=== PATIENT | male | born 1970 | race Caucasian/White ===

== ENCOUNTER 2016-08-19 13:48 | Emergency (ER) | payer SELFPAY ==
--- NOTE | 2016-08-19 14:25 | ERNOTE ---
Dizziness ER Record Date of Service: 08/19/16 Presenting Symptoms: dizziness, weakness Time Seen by Provider: 08/19/16 14:06 Source: patient, family Exam Limitations: no limitations Immunizations: IMMUNIZATION HX Immunizations Up to Date Yes Allergies/Adverse Reactions: Allergies Allergy/AdvReac Type Severity Reaction Status Date / Time Sulfa (Sulfonamide Allergy Verified 08/19/16 14:02 Antibiotics) tomato AdvReac Verified 08/19/16 14:02 Home Medications: HOME MEDICATIONS Lisinopril [Prinivil] 20 mg PO DAILY 08/19/16 [Last Taken Unknown] - History of Present Illness Narrative: Pt. comes in with c/o dizziness, lightheadedness, nausea and vomiting, low blood pressure, weakness and fatigue for three days after he goes to work each day starting at about mid shift. Pt. denies any alleviating or aggravating factors pain, or headache, pt. does state that he has held his blood pressure medication the past two days. Pt. denies any CP, SOB, fever, abdominal pain, or diarrhea. Review of Systems - Review of Systems Constitutional: Present: weakness, fatigue, malaise. Absent: recent illness, fever, chills EYE: Present: no symptoms reported ENT: Present: no symptoms reported. Absent: nose pain, nose congestion, nasal drainage Respiratory: Present: no symptoms reported. Absent: shortness of breath, cough , wheezing Cardiology: Present: no symptoms reported. Absent: chest pain, palpitations, edema Gastrointestinal/Abdominal: Present: nausea, vomiting. Absent: diarrhea, abdominal pain Genitourinary: Present: no symptoms reported Musculoskeletal: Present: no symptoms reported. Absent: back pain, joint pain Skin: Present: no symptoms reported. Absent: rash, change in color Neurological: Present: dizziness/light-headedness. Absent: headache, numbness, tingling All Other Systems: All systems neg except as marked - Patient's Past Medical History Patient History - Medical: No pertinent hx Patient History - Cardiac/Respiratory: No pertinent hx Patient History - Cancer: No Hx of Cancer Patient History - Surgical Procedures: No surgical history Patient History - Other: None - Social History Living Situations: spouse Abuse History: No History of abuse Psych History: No pertinent hx Smoking Status: Current every day smoker Alcohol Use: none Drug Use: none - Immunizations Immunizations Up to Date: Yes Physical Exam - Physical Exam General Appearance: Present: wd/wn, alert, no apparent distress Eye Exam: Normal inspection: bilateral, PERRL: bilateral, EOMI: bilateral Ears, Nose, Throat: Present: normal ENT inspection, normal pharynx Neck: Present: normal inspection, nontender. Absent: lymphadenopathy (R), lymphadenopathy (L) Respiratory: Present: no respiratory distress, normal breath sounds, no accessory muscle use, chest nontender, lungs clear Cardiovascular/Chest: Present: regular rate, rhythm, no murmur, normal peripheral pulses Gastrointestinal/Abdominal: Present: normal bowel sounds, nontender, nondistended, soft, no organomegaly Back Exam: Present: normal inspection, normal range of motion, no CVA tenderness , no vertebral tenderness Extremity Exam: Present: normal inspection, non-tender, normal range of motion, no edema Neurological Exam: Present: alert, oriented, normal mood/affect, no motor/ sensory deficits, 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 - Vital Signs Patient's Vital Signs:: I have reviewed the patient's vital signs. Vital Signs: Vital Signs 08/19/16 13:54 Temperature 36.8 C Pulse Rate 80 Respiratory 16 Rate Blood Pressure 105/66 O2 Sat by Pulse 95 Oximetry - EKG EKG: NSR EKG read: Reviewed by me EKG Comments: interp by Dr Oscar swann - Progress/Reassessment Chief Complaint: Dizziness Progress:: Improved Departure Clinical Impression: Intolerance to heat, Dehydration - Departure Disposition: Home self-care Condition: Good Instructions: Heat Exhaustion Information, Dehydration, Adult, [id number], Form - Excuse from Work, School, or Physical Activity Additional Instructions: Please avoid heat situations, follow up with Kayli Boggs early next week for repeat labs and evaluation. Do not take lisinopril until further notice and discuss with primary provider next week. Referrals: Jeff Garzon MD [Primary Care Provider] -
[2016-08-19 14:39] LABS: Hematocrit 44.3 % (42.0-52.0); Hemoglobin 16.1 gm/dL (13.5-18.0); Mean Cell Volume 88.1 fl (78-100); Mean Corpuscular Hgb Conc 36.3 g/dl (32-36); Mean Platelet Volume 9.6 fl (6.0-9.5); Neutrophil # 6.1 K/mm3 (1.3-6.0); Neutrophil % 65.3 % (42-75.0); Platelet Count 239 K/mm3 (150-450); Red Blood Count 5.03 M/mm3 (4.7-6.0); Red Cell Distribution Width 12.9 % (11.5-14.0); White Blood Count 9.3 K/mm3 (4.0-10.5)
[2016-08-19] MEDS ORDERED: ONDANSETRON HCL/PF 2 MG/ML VIAL ONE (14:41)
[2016-08-19] MEDS ORDERED: NORMAL SALINE 1,000 ML IV ONE (14:42)
[2016-08-19] MEDS ORDERED: ONDANSETRON HCL/PF 2 MG/ML VIAL IV ONE (14:42)
[2016-08-19] MEDS ORDERED: ACETAMINOPHEN 500 MG TABLET PO ONE (14:56)
[2016-08-19 15:04] LABS: ALT 25 U/L (19-67); AST 18 U/L (0-48); Albumin * 3.7 gm/dl (3.4-5.0); Alkaline Phosphatase * 91 U/L (50-170); Anion Gap 10.4 mmol/L (6.8-13.8); BUN/Creatinine Ratio 27.7 (9.0-21.6); Bilirubin, Total 0.8 mg/dL (0.0-1.1); Blood Urea Nitrogen 46 mg/dL (6-23); Ca. Corrected For Albumin 9.5 mg/dL (8.4-10.2); Calcium * 9.6 mg/dL (7.9-10.9); Carbon Dioxide 29.4 mmol/L (24-32.6); Chloride 100 mmol/L (97-106); Glucose * 98 mg/dL (70-110); Potassium 3.8 mmol/L (3.4-4.6); Sodium 136 mmol/L (132-142); Total Protein 7.1 gm/dL (6.2-8.2); Troponin I Less than 0.017 ng/ml (0.00-0.10)
[2016-08-19 16:36] LABS: Urine Appearance Clear; Urine Bacteria None Seen; Urine Bilirubin Negative (NEGATIVE); Urine Blood Negative /ul (NEGATIVE); Urine Color Yellow; Urine Ketone Negative (NEGATIVE); Urine Nitrite Negative (NEGATIVE); Urine Protein Negative (NEGATIVE); Urine RBC None Seen /hpf (0-5); Urine Specific Gravity 1.025 SP.GR. (1.005-1.030); Urine Urobilinogen Normal (NORMAL); Urine WBC 0-5 /hpf (0-5)
[2016-08-19 17:06] VITALS: BP 107/68
[2016-08-19 17:14] LABS: Cocaine Ur Negative (NEGATIVE); Urine Barbiturate Negative (NEGATIVE); Urine Benzodiazepines Negative (NEGATIVE); Urine Opiates Negative (NEGATIVE); Urine PCP Negative (NEGATIVE); Urine THC Negative (NEGATIVE)
== END 2016-08-19 17:12 | disposition home or self-care (01) ==
LOC: ER 13:48
DX: E86.0 Dehydration (principal); R68.89 Other general symptoms and signs; F17.200 Nicotine dependence, unspecified, uncomplicated
CPT/HCPCS: 36415; 80053; 80307; 81001; 84484; 85025; 93005; 96361; 96374; 99283; J2405